=== PATIENT | male | born 1990 | race Caucasian/White ===

== ENCOUNTER 2018-12-09 14:26 | Emergency (ER) | payer OTHER ==
[~2018-12-09] VITALS: Ht 165.1 cm; Wt 77.3 kg
[2018-12-09 14:27] VITALS: BP 139/93
== END 2018-12-09 17:49 | disposition left against medical advice (07) ==
LOC: M ED 14:26
DX: M79.602 Pain in left arm (principal); Z53.21 Procedure and treatment not carried out due to patient leaving prior to being seen by health care provider